=== PATIENT | female | born 1985 | race Caucasian/White ===

== ENCOUNTER 2020-04-14 20:25 | Emergency (ER) | payer BC ==
[2020-04-14] MEDS ORDERED: WELLBUTRIN PO (20:42)
[2020-04-14] MEDS ORDERED: LATUDA20 MG PO (20:42)
[2020-04-14 21:58] LABS: EOS # 0.2 (0.04-0.40); EOS % 2.6 % (1.0-5.0); HEMATOCRIT 40.9 % (37.0-47.0); HEMOGLOBIN 13.4 g/dL (12.5-16.0); LYMPH# 2.3 (1.50-4.00); MEAN CELL VOLUME 89 fl (78-100); MEAN CORPUSCULAR HEMOGLOBIN 29 pg (27-31); MEAN CORPUSCULAR HGB CONC 33 g/dL (33-37); MONO # 0.6 (0.20-0.80); NEU # 4.4 (1.40-6.50); PLATELET COUNT 266 K/mm3 (130-400); RED BLOOD COUNT 4.59 M/mm3 (4.10-5.30); RED CELL DISTRIBUTION WIDTH 13.1 % (11.5-14.5); WHITE BLOOD COUNT 7.6 K/mm3 (4.8-10.8)
[2020-04-14 22:02] LABS: ALBUMIN 4.3 g/dL (3.5-5.0)
[2020-04-14 22:03] LABS: POTASSIUM 3.7 mmol/L (3.5-5.1)
[2020-04-14 22:04] LABS: CALCIUM 9.4 mg/dL (8.3-10.5)
[2020-04-14 22:05] LABS: TOTAL PROTEIN 7.3 g/dL (6.4-8.3)
[2020-04-14 22:07] LABS: TOTAL BILIRUBIN 0.4 mg/dL (0.2-1.2)
[2020-04-14] MEDS ORDERED: ZOFRAN ODT4 MG PO (22:36)
[2020-04-14 22:56] VITALS: BP 128/86
== END 2020-04-14 22:56 | disposition home or self-care (01) ==
LOC: ED 20:25
PROVIDERS: Family Medicine
DX: R11.2 Nausea with vomiting, unspecified (principal); R10.10 Upper abdominal pain, unspecified; F41.9 Anxiety disorder, unspecified; F32.9 Major depressive disorder, single episode, unspecified; F17.210 Nicotine dependence, cigarettes, uncomplicated; Z20.828 Contact with and (suspected) exposure to other viral communicable diseases; Z87.19 Personal history of other diseases of the digestive system; Z90.49 Acquired absence of other specified parts of digestive tract
CPT/HCPCS: J1885; J2405